=== PATIENT | female | born 1990 | race Caucasian/White ===

== ENCOUNTER 2022-02-08 10:20 | Emergency (ER) | payer OTHER ==
[~2022-02-08] VITALS: Ht 157.5 cm; Wt 59.1 kg
[2022-02-08] MEDS ORDERED: ONDANSETRON 4MG 2ML VIAL IV ONE (10:55)
[2022-02-08] MEDS ORDERED: BENZONATATE 100MG CAPSULE PO ONE (10:55)
[2022-02-08] MEDS ORDERED: NS 1,000 ML IV ONE (10:55)
[2022-02-08] MEDS ORDERED: ONE-TAB3 PO (11:05)
[2022-02-08] MEDS ORDERED: VITA500C24 PO (11:05)
[2022-02-08] MEDS ORDERED: PROB250C PO (11:05)
[2022-02-08] MEDS ORDERED: D31000CA4 PO (11:32)
[2022-02-08] MEDS ORDERED: METOCLOPRAMIDE INJ 10MG/2ML VIAL (J2765 PER 1) IV ONE (12:20)
[2022-02-08 13:00] VITALS: BP 125/68
[2022-02-08] MEDS ORDERED: GUAI1SOL2 PO (13:42)
[2022-02-08] MEDS ORDERED: ONDA4TAB6 PO (14:04)
== END 2022-02-08 14:30 | disposition home or self-care (01) ==
LOC: M ED 10:20
DX: U07.1 COVID-19 (principal); F43.10 Post-traumatic stress disorder, unspecified; F41.9 Anxiety disorder, unspecified; Z91.040 Latex allergy status; F17.290 Nicotine dependence, other tobacco product, uncomplicated; Z79.899 Other long term (current) drug therapy
CPT/HCPCS: 96361; 96374; 96375; 99284; J2405; J2765

== ENCOUNTER 2022-03-13 16:57 | Emergency (ER) | payer OTHER ==
[~2022-03-13] VITALS: Ht 157.5 cm; Wt 58.6 kg
[2022-03-13 16:57] VITALS: BP 111/56
[~2022-03-13 16:57] MED LIST: D31000CA4 PO; GUAI1SOL2 PO; ONDA4TAB6 PO; ONE-TAB3 PO; PROB250C PO; VITA500C24 PO
[2022-03-13] MEDS ORDERED: VIT1TAB.8 PO (17:28)
[2022-03-13 17:59] LABS: BASO % 0.3 % (0.0-1.0); EOS # 0.1 10^3/uL (0.0-0.5); EOS % 0.8 % (0.0-3.0); HEMATOCRIT 33.1 % (36.0-47.0); HEMOGLOBIN 11.1 g/dl (12.0-15.5); LYMPH # 1.8 10^3/uL (1.5-5.0); LYMPH % 18.2 % (24.0-44.0); MEAN CORPUSCULAR HEMOGLOBIN 29.8 pg (27.0-33.0); MEAN CORPUSCULAR HGB CONC 33.5 g/dl (32.0-36.5); MEAN CORPUSCULAR VOLUME 88.7 fl (80.0-96.0); MONO # 0.6 10^3/uL (0.0-0.8); MONO % 6.4 % (2.0-8.0); NEUTROPHILS # 7.2 10^3/uL (1.5-8.5); NEUTROPHILS % 73.7 % (36.0-66.0); PLATELET COUNT, AUTOMATED 212 10^3/uL (150-450); RED BLOOD COUNT 3.73 10^6/uL (4.00-5.40); WHITE BLOOD COUNT 9.8 10^3/uL (4.0-10.0)
[2022-03-13 18:27] LABS: HCG, SERUM QUALITATIVE NEGATIVE (NEGATIVE)
[2022-03-13 18:52] LABS: LIPASE 21 U/L (12-53)
[2022-03-13 18:54] LABS: BILIRUBIN,DIRECT 0.2 MG/DL (<0.4)
[2022-03-13 18:55] LABS: ALBUMIN 3.8 G/DL (3.2-5.2); ALKALINE PHOSPHATASE 50 U/L (46-116); ALT/SGPT 10 U/L (7.0-40); AST/SGOT 12 U/L (<34); BILIRUBIN,TOTAL 0.4 MG/DL (0.3-1.2); BLOOD UREA NITROGEN 13 MG/DL (9-23); CALCIUM LEVEL 8.4 MG/DL (8.5-10.1); CARBON DIOXIDE LEVEL 26 MMOL/L (20-31); CHLORIDE LEVEL 105 MMOL/L (98-107); CREATININE FOR GFR 0.53 MG/DL (0.55-1.30); GLOMERULAR FILTRATION RATE > 60.0 (>60); GLUCOSE, FASTING 150 MG/DL (60-100); POTASSIUM SERUM 3.6 MMOL/L (3.5-5.1); SODIUM LEVEL 139 MMOL/L (136-145); TOTAL PROTEIN 6.3 G/DL (5.7-8.2)
== END 2022-03-13 19:51 | disposition left against medical advice (07) ==
LOC: M ED 16:57
DX: Z53.21 Procedure and treatment not carried out due to patient leaving prior to being seen by health care provider (principal)

== ENCOUNTER 2022-09-17 18:03 | Emergency (ER) | payer OTHER ==
[~2022-09-17] VITALS: Ht 157.5 cm; Wt 56.1 kg
[~2022-09-17 18:03] MED LIST changes: +VIT1TAB.8 PO
[2022-09-17 18:04] VITALS: BP 147/75; TEMP 99.8; O2SAT 98
[2022-09-17] MEDS ORDERED: BOOSTRIX VACCINE (TETANUS/DIPHTH/ACEL. PERTUSSIS) 0.5ML SYR IM.IMMUN ONE (18:40)
[2022-09-17] MEDS ORDERED: DERMABOND TOPICAL SKIN ADHESIVE TOP ONE (18:40)
[2022-09-17] MEDS ORDERED: ACETAMINOPHEN 500 MG TAB PO ONE (18:45)
== END 2022-09-17 19:03 | disposition home or self-care (01) ==
LOC: M ED 18:03
DX: S01.01XA Laceration without foreign body of scalp, initial encounter (principal); W22.8XXA Striking against or struck by other objects, initial encounter; Y92.009 Unspecified place in unspecified non-institutional (private) residence as the place of occurrence of the external cause; Y93.89 Activity, other specified; Y99.8 Other external cause status; Z91.040 Latex allergy status; Z79.899 Other long term (current) drug therapy

== ENCOUNTER → 2024-06-05 | Outpatient (REF) | payer OTHER ==
[~2024-06-05] MED LIST changes: +ONDA-282 PO; -ONDA4TAB6 PO
== END ==
LOC: M LAB REF 16:49
PROVIDERS: ATTEND Physician Assistant Medical
DX: H66.41 Suppurative otitis media, unspecified, right ear (principal)

== ENCOUNTER → 2024-07-12 | Outpatient (CLI) | payer OTHER | LOC: M RAD 14:01 | PROVIDERS: ATTEND Physician Assistant Medical | DX: H92.11 Otorrhea, right ear (principal) ==